=== PATIENT | male | born 1970 | race Caucasian/White ===

== ENCOUNTER 2017-05-28 10:18 | Day surgery (SDC) | payer OTHER ==
[~2017-05-28] VITALS: Ht 185.4 cm; Wt 73.0 kg
[~2017-05-28 10:18] MED LIST: BUSPAR10 MG PO; BUSPIRONE HCL10 MG PO; CELEXA; CELEXA20 MG PO; CETIRIZINE HCL10 M2 PO; CLONIDINE HCL0.1 MG PO; IBUPROFEN200 M1 PO; KEFLEX500 MG PO; KLONIPIN; KLONOPIN0.5 M1 PO; LORAZEPAM1 MG PO; METHADONE5 MG PO; MIRTAZAPINE15 MG PO; NEURONTIN600 MG PO; NICOTINE PATCH1 EAC2 TD; OXYCODONE HCL15 MG PO; PERCOCET 5/31 TABLET PO; QUETIAPINE; QUETIAPINE FUM100 MG PO; QUETIAPINE FUM200 MG PO; QUETIAPINE FUM400 MG PO; RANITIDINE HCL150 MG PO; SEROQUEL XR150 MG PO; SEROQUEL200 MG PO; SEROQUEL400 MG PO; TRAZODONE HCL150 MG PO; WELLBUTRIN XL300 MG PO; ZANTAC150 MG PO; ZOLPIDEM TARTRAT5 MG PO; ZYRTEC10 M3 PO
[2017-05-28 10:53] VITALS: BP 122/83
[2017-05-28] MEDS ORDERED: PERCOCET 5/31 TABLET PO (13:09)
[2017-05-28] MEDS ORDERED: COLACE100 MG PO (13:09)
[2017-05-28 14:15] VITALS: BP 117/75
[2017-05-28 15:10] VITALS: BP 130/86
== END 2017-05-28 15:10 | disposition home or self-care (01) ==
LOC: SDC 10:18
DX: K64.4 Residual hemorrhoidal skin tags (principal); K62.5 Hemorrhage of anus and rectum; K21.9 Gastro-esophageal reflux disease without esophagitis; F41.8 Other specified anxiety disorders; F17.200 Nicotine dependence, unspecified, uncomplicated
CPT/HCPCS: 88304; J0330; J0585; J1100; J1170; J1885; J2250; J2405; J3010; S0030